=== PATIENT | male | born 1945 | race Caucasian/White ===

== ENCOUNTER 2023-11-06 17:18 | Emergency (ER) | payer MEDICARE, OTHER, SELFPAY ==
[2023-11-06 17:27] VITALS: BP 137/67
--- NOTE | 2023-11-06 18:49 | ED.GENMED ---
History of Present Illness
General
Chief Complaint: Flank Pain
Source: patient
Exam Limitations: none
Time Seen by Provider: 11/06/23 18:18
Nursing documentation reviewed up to this point in time: agreed with
History of Present Illness
History of Present Illness:
Patient is a 78-year-old male who has past with history of A-fib hypertension renal stones presents to the ER for evaluation of left flank pain. He reports he has a history of kidney stones in the past however they were on his right side. Patient
reports he started at 4 AM with left-sided flank pain and that this is the opposite side his pain feels similar. He does feel it radiating to his left front abdomen. He denies any nausea vomiting. He did have old Flomax and old Torado at home
and took that this am. He denies any nausea vomiting fever chills. He did not see any blood in his urine but noticed that his urine was darker.
Past History
Past History
ED Past Medical History: Arrthythmia and Other (Osteoarthritis)
ED Past Surgical History: Orthopedic (Left hip replacement, biceps tendon repair), Tonsilectomy and Other (TURP)
Social History
Tobacco: Non-smoker
Alcohol: Occasional
Drug: None
Personal:
Living: with family
Employment: Employed
Review of Systems
Review of Systems
Allergies reviewed?: Yes
All Other Systems: ROS reviewed and negative except as documented in HPI and ROS
Constitutional: Reports no symptoms; Denies fever, fatigue or chills
Respiratory: Reports no symptoms
Cardiac: Reports no symptoms
Phy Exam
General Physical Exam
General Presentation: no apparent distress
General age: appears stated age
General Skin: warm and dry
General Habitus: normal
General Mental: alert
General Hydration: appears well hydrated
Neurological Exam
Neurological Exam: alert and oriented x3
Musculoskeletal Exam
Musculoskeletal Exam: full ROM
Skin Exam
Skin Exam: normal color and warm/dry
Psychiatric Exam
Psychiatric Exam: normal mood/affect
Course
Orders/Labs/Results
Orders:
Orders
11/06/23 18:48
IV Insert/Care/Rem.- Treatment PRN
0.9% Sodium Chloride 1000 ml [Nss] 1,000 ml IV BOLUS
Ondansetron Injectable [Zofran] 4 mg IV NOW STA
11/06/23 18:49
CT Abd/pel Without Iv Or Oral Urgent
Comment:
Reason For Exam: left flank pain
11/06/23 19:13
Complete Blood Count/With Diff Urgent
Comprehensive Metabolic Panel Urgent
Urinalysis Reflex To Culture Urgent
Date Specimen was Collected: 11/06/23
Time Specimen was Collected: 18:52
Urine Microscopic Reflex Cult Urgent
Abnormal Lab Results
11/06/23
19:13
RBC 4.12 L 10^6/uL
(4.70-6.10)
MCV 95.6 H fL
(80.0-94.0)
MCH 33.7 H pg
(27.0-31.0)
Absolute Neuts (auto) 6.8 H 10^3/uL
(1.4-6.5)
Absolute Lymphs (auto) 0.8 L 10^3/uL
(1.2-3.4)
Absolute Monos (auto) 0.8 H 10^3/uL
(0.1-0.6)
Neutrophils % 79.8 H %
(42.2-75.2)
Lymphocytes % 9.0 L %
(20.5-51.1)
Monocytes % 9.4 H %
(1.7-9.3)
BUN 26 H mg/dl
(9-20)
Creatinine 1.4 H mg/dL
(0.7-1.3)
Glucose 108 H mg/dl
(70-99)
Total Bilirubin 1.7 H mg/dl
(0.2-1.3)
Urine Ketones Trace A
(Negative)
Ur Occult Blood Reflex 4+ A
(Negative)
Urine Bilirubin 1+ A
(Negative)
Leukocyte Esterase Rfl Trace A
(Negative)
Urine RBC >100 A /HPF
(0-2)
Urine Bacteria (Reflex) Few A
(Negative)
11/06/23 19:13
11/06/23 19:13
Vital Signs
Initial and Last Documented VS:
Initial Vital Signs
Temp Pulse Resp BP Pulse Ox
98.7 F 88 16 137/67 95
11/06/23 17:27 11/06/23 17:27 11/06/23 17:27 11/06/23 17:27 11/06/23 17:27
Last Documented Vital Signs
Temp Pulse Resp BP Pulse Ox
98.7 F 88 16 122/93 97
11/06/23 17:27 11/06/23 17:27 11/06/23 17:27 11/06/23 19:11 11/06/23 19:30
MDM/Problems Addressed
Differential Diagnosis Includes:
Not limited to renal colic
MDM/Problems Addressed:
Patient is a 70-year-old male with prior history of renal colic presents to the ER with left flank pain. Patient given Toradol here in the ER not very uncomfortable feeling better. Patient denies any fever chills. Urinalysis does show greater
than 100 RBCs . CAT scan shows acute left hydroureteronephrosis secondary to a 5.8 mm stone in the mid left ureter mild chronic bilateral renal disease. BUN/creatinine elevated here at 26 and 1.4 which is new compared to 04/02. I did review
findings with urology on-call Dr. Beatty. Patient has been followed by the prescription in the past. Will DC with pain medication Flomax and outpatient follow-up. His vital signs are stable he is afebrile no acute distress feeling better.
*Radiology
Radiology exam reviewed: radiology read reviewed
*Critical Care Note
Total Time (30-74mins, 75-104mins- exclusive of procedures): Not Applicable
Patient Management
Discussion with other providers: Rebar Worker (DR Beatty )
ED Attending Note
-
Portions of this chart may have been created with voice recognition software.� Occasional wrong word or��sound alike� substitutions may have occurred due to the inherent limitations of voice recognition software.
Discharge Plan
Departure
Patient Disposition: Home (Routine Discharge)
Date of Disposition: 11/06/23
Time of Disposition: 20:49
Patient with high blood pressure during this ER visit?: Yes
Condition: Fair
Covid-19: Not Applicable
Discharge Problem:
renal colic
Instructions: Kidney Stones (DC), BLOOD PRESSURE, Narcotic Pain Medication
Prescriptions:
New
tamsulosin [Flomax] 0.4 mg capsule
0.4 mg PO DAILY Qty: 7 0RF
oxycodone 5 mg capsule
5 mg PO Q6H PRN (Reason: Pain) Qty: 10 0RF
No Action
naproxen sodium [Aleve] 220 MG tablet
220 mg PO DAILY
metoprolol succinate 25 MG tablet extended release 24 hr
25 mg PO NOON
cholecalciferol (vitamin D3) 2,000 UNITS tablet
2,000 unit PO DAILY
Centrum Silver 1 EACH tablet
1 tab PO DAILY
amlodipine 5 MG tablet
5 mg PO NOON
esomeprazole magnesium [Nexium] 40 MG capsule,delayed release(/EC)
40 mg PO DAILY
rosuvastatin 10 MG tablet
10 mg PO NOON
biotin 1 mg Tablet
1,000 mg PO DAILY
Referrals:
Michel Beatty MD [Active] -
Eric Cuellar MD [Family Provider] -
Activity Restrictions/Additional Instructions:
As discussed stay well-hydrated. You may take ibuprofen every 8 hours for pain however if no improvement a prescription for pain medication, narcotic was sent to her pharmacy. Do not drive or drink alcohol taking this medication .this medication
make you drowsy. This medication may also cause constipation it is recommended that you take stool softener, Colace [id number] while taking this. Strain all urine.
Flomax as directed daily for the next 7 days.
Follow-up with urology in the next several days.
Please call tomorrow to make an appointment.
Return if any worsening of symptoms of increased pain nausea vomiting fever chills or any further concerns.
Interventions
Interventions:
PR-Vevfvi-Dykfjqybin Assessment Last Done: 11/06/23 19:34
ED-Male Genitourinary Assessment Last Done: 11/06/23 19:34
Discharge Date and Time
Print Language: [place]
[2023-11-06] MEDS: NSS 1000 IV (19:08)
[2023-11-06] MEDS: ZOFRAN 4 MG IV (19:08)
[2023-11-06 19:11] VITALS: BP 122/93
[2023-11-06 19:19] LABS: % Basophils 0.6 % (0-2); % Eosinophils 0.7 % (0-6); % Immature Granulocytes 0.5 % (0-0.5); % Monocytes 9.4 % (1.7-9.3); % Neutrophils 79.8 % (42.2-75.2); Absolute Basophils 0.1 10^3/uL (0-0.2); Absolute Eosinophils 0.1 10^3/uL (0-0.7); Absolute Lymphocytes 0.8 10^3/uL (1.2-3.4); Absolute Monocytes 0.8 10^3/uL (0.1-0.6); Absolute Neutrophils 6.8 10^3/uL (1.4-6.5); Hematocrit 39.4 % (39.0-52.0); Hemoglobin 13.9 g/dL (13.0-18.0); Mean Corp Hgb Conc. 35.3 g/dL (33.0-37.0); Mean Corpuscular Hgb 33.7 pg (27.0-31.0); Mean Corpuscular Volume 95.6 fL (80.0-94.0); Mean Platelet Volume 9.6 fL (7.4-10.4); Nucleated Red Blood Cells % 0 % (-); Platelet Count 220 10^3/uL (130-400); Red Blood Cell Count 4.12 10^6/uL (4.70-6.10); Red Cell Dist. Width 12.4 % (11.5-14.5); Urine Albumin Trace (Neg - Trace); Urine Bilirubin 1+ (Negative); Urine Character Clear (Clear); Urine Color Yellow; Urine Glucose Negative (Negative); Urine Ketone Trace (Negative); Urine Leukocyte Trace (Negative); Urine Nitrite Negative (Negative); Urine Occult Blood 4+ (Negative); Urine Urobilinogen 1+ (Neg - 1+); White Blood Cell Count 8.5 10^3/uL (4.8-10.8)
[2023-11-06 19:30] LABS: Urine Bacteria Few (Negative); Urine Mucus Few; Urine Red Blood Cell >100 /HPF (0-2); Urine Squamous Cell 0-2 /LPF (Few); Urine White Cell 0-2 /HPF (0-5)
[2023-11-06 19:41] LABS: ALT (SGPT) 26 U/L (0-50); AST (SGOT) 32 U/L (17-59); Albumin 4.1 g/dl (3.5-5.0); Alkaline Phosphatase 110 U/L (38-126); Blood Urea Nitrogen 26 mg/dl (9-20); Calcium 9.4 mg/dl (8.4-10.2); Carbon Dioxide 28 mmol/L (22-30); Chloride 106 mmol/L (98-107); Glucose 108 mg/dl (70-99); Potassium 4.2 mmol/L (3.5-5.1); Sodium 138 mmol/L (135-145); Total Bilirubin 1.7 mg/dl (0.2-1.3); Total Protein 6.4 g/dl (6.3-8.2); eGFR 51.45
[2023-11-06] MEDS: ROXICODONE 5 MG PO (20:58)
== END 2023-11-06 21:04 | disposition home or self-care (01) ==
LOC: EMR 17:18
PROVIDERS: Nurse Practitioner; EMERGENCY PHYSICIAN Emergency Medicine; FAMILY PHYSICIAN Internal Medicine
DX: N13.2 Hydronephrosis with renal and ureteral calculous obstruction (principal); I10 Essential (primary) hypertension; I48.91 Unspecified atrial fibrillation
CPT/HCPCS: 99284; 96374; 96361; 74176; 80053; 81003; 81015; 85025

== ENCOUNTER 2023-11-25 06:25 | Day surgery (SDC) | payer MEDICARE, OTHER, SELFPAY ==
[2023-11-25] VITALS (8 sets, daily range): BP systolic 136–185; BP diastolic 66–80; BMI 26.8
[2023-11-25] MEDS: NORMOSOL-R 1000 IV (07:34)
[2023-11-25] MEDS: Pyridium 200 MG PO (09:19)
== END 2023-11-25 10:50 | disposition home or self-care (01) ==
LOC: SDS 06:25
PROVIDERS: ATTENDING PHYSICIAN Specialist
DX: N13.2 Hydronephrosis with renal and ureteral calculous obstruction (principal)
CPT/HCPCS: 52356; 52204; 88305; 74018; 76000; 93005; A4300; C1894; C2617

== ENCOUNTER → 2024-02-27 09:48 | Outpatient (REF) | payer MEDICARE, OTHER, SELFPAY ==
[2024-02-27 10:23] LABS: Urine Albumin Negative (Neg - Trace); Urine Bilirubin Negative (Negative); Urine Character Clear (Clear); Urine Color Yellow; Urine Glucose Negative (Negative); Urine Ketone Negative (Negative); Urine Leukocyte Negative (Negative); Urine Nitrite Negative (Negative); Urine Occult Blood Negative (Negative); Urine Urobilinogen Negative (Neg - 1+)
[2024-02-27 10:33] LABS: % Basophils 0.9 % (0-2); % Eosinophils 2.2 % (0-6); % Immature Granulocytes 0.7 % (0-0.5); % Lymphocytes 22.6 % (20.5-51.1); % Monocytes 12.2 % (1.7-9.3); % Neutrophils 61.4 % (42.2-75.2); Absolute Eosinophils 0.1 10^3/uL (0-0.7); Absolute Monocytes 0.6 10^3/uL (0.1-0.6); Absolute Neutrophils 2.8 10^3/uL (1.4-6.5); Hemoglobin 14.8 g/dL (13.0-18.0); Mean Corp Hgb Conc. 35.2 g/dL (33.0-37.0); Mean Corpuscular Hgb 33.3 pg (27.0-31.0); Mean Corpuscular Volume 94.6 fL (80.0-94.0); Mean Platelet Volume 10.1 fL (7.4-10.4); Nucleated Red Blood Cells % 0 % (-); Platelet Count 230 10^3/uL (130-400); Red Blood Cell Count 4.44 10^6/uL (4.70-6.10); White Blood Cell Count 4.6 10^3/uL (4.8-10.8)
[2024-02-27 11:51] LABS: ALT (SGPT) 37 U/L (0-50); AST (SGOT) 34 U/L (17-59); Albumin 4.4 g/dl (3.5-5.0); Alkaline Phosphatase 94 U/L (38-126); Blood Urea Nitrogen 18 mg/dl (9-20); Calcium 8.8 mg/dl (8.4-10.2); Carbon Dioxide 26 mmol/L (22-30); Chloride 102 mmol/L (98-107); Glucose 90 mg/dl (70-99); HDL Cholesterol 63 mg/dl; LDL Cholesterol, Calculated 94 mg/dl; Potassium 4.2 mmol/L (3.5-5.1); Sodium 139 mmol/L (135-145); Total Bilirubin 2.2 mg/dl (0.2-1.3); Total Cholesterol 169 mg/dl (50-199); Total Protein 6.9 g/dl (6.3-8.2); Triglyceride 64 mg/dl (10-149); Very Low Density Lipoprotein 12 mg/dl (0-30); eGFR > 60.00
== END ==
LOC: REG 09:48
PROVIDERS: ATTENDING PHYSICIAN Internal Medicine
DX: E78.2 Mixed hyperlipidemia (principal); I10 Essential (primary) hypertension
CPT/HCPCS: 36415; 80053; 80061; 81003; 85025

== ENCOUNTER → 2024-08-08 09:24 | Outpatient (REF) | payer MEDICARE, OTHER, SELFPAY ==
[2024-08-08 10:09] LABS: % Basophils 0.1 % (0-2); % Immature Granulocytes 0.3 % (0-0.5); % Lymphocytes 5.9 % (20.5-51.1); % Neutrophils 86.7 % (42.2-75.2); Absolute Lymphocytes 0.5 10^3/uL (1.2-3.4); Absolute Monocytes 0.6 10^3/uL (0.1-0.6); Absolute Neutrophils 7.5 10^3/uL (1.4-6.5); Hematocrit 41.4 % (39.0-52.0); Hemoglobin 14.4 g/dL (13.0-18.0); Mean Corp Hgb Conc. 34.8 g/dL (33.0-37.0); Mean Corpuscular Hgb 33.1 pg (27.0-31.0); Mean Corpuscular Volume 95.2 fL (80.0-94.0); Mean Platelet Volume 10.4 fL (7.4-10.4); Nucleated Red Blood Cells % 0 % (-); Platelet Count 232 10^3/uL (130-400); Red Blood Cell Count 4.35 10^6/uL (4.70-6.10); Red Cell Dist. Width 11.9 % (11.5-14.5); White Blood Cell Count 8.7 10^3/uL (4.8-10.8)
[2024-08-08 10:41] LABS: ALT (SGPT) 28 U/L (0-50); AST (SGOT) 28 U/L (17-59); Albumin 4.1 g/dl (3.5-5.0); Alkaline Phosphatase 88 U/L (38-126); Blood Urea Nitrogen 24 mg/dl (9-20); Calcium 9.6 mg/dl (8.4-10.2); Carbon Dioxide 24 mmol/L (22-30); Chloride 108 mmol/L (98-107); Glucose 115 mg/dl (70-99); HDL Cholesterol 71 mg/dl; LDL Cholesterol, Calculated 79 mg/dl; Potassium 4.3 mmol/L (3.5-5.1); Sodium 142 mmol/L (135-145); Total Bilirubin 1.5 mg/dl (0.2-1.3); Total Cholesterol 158 mg/dl (50-199); Total Protein 6.6 g/dl (6.3-8.2); Triglyceride 40 mg/dl (10-149); Very Low Density Lipoprotein 8 mg/dl (0-30); eGFR > 60.00
[2024-08-08 11:06] LABS: PSA, Total - Screen 1.74 ng/ml (0.0-4.0)
== END ==
LOC: REG 09:24
PROVIDERS: ATTENDING PHYSICIAN Internal Medicine
DX: I48.0 Paroxysmal atrial fibrillation (principal); I08.0 Rheumatic disorders of both mitral and aortic valves; I10 Essential (primary) hypertension; R68.89 Other general symptoms and signs; Z12.5 Encounter for screening for malignant neoplasm of prostate
CPT/HCPCS: 36415; 80053; 80061; 85025; G0103

== ENCOUNTER 2024-10-24 06:28 | Day surgery (SDC) | payer MEDICARE, OTHER, SELFPAY | END 2024-10-24 14:36 | disposition home or self-care (01) | LOC: GI 06:28 | PROVIDERS: ATTENDING PHYSICIAN Internal Medicine Gastroenterology | DX: Z12.11 Encounter for screening for malignant neoplasm of colon (principal); K57.30 Diverticulosis of large intestine without perforation or abscess without bleeding; K64.8 Other hemorrhoids; K29.70 Gastritis, unspecified, without bleeding; K22.70 Barrett's esophagus without dysplasia; K29.50 Unspecified chronic gastritis without bleeding | CPT/HCPCS: 43239; G0121; 88305; 88342 ==

== ENCOUNTER → 2025-03-29 16:02 | Outpatient (REF) | payer MEDICARE, OTHER, SELFPAY | LOC: HWRCS 16:02 | PROVIDERS: ATTENDING PHYSICIAN Internal Medicine Cardiovascular Disease; FAMILY PHYSICIAN Internal Medicine | DX: I48.0 Paroxysmal atrial fibrillation (principal); I10 Essential (primary) hypertension | CPT/HCPCS: 93306 ==